=== PATIENT | female | born 1970 | race Native Hawaiian/Other Pacific Islander ===

== ENCOUNTER 2023-08-29 14:08 | Outpatient (AMB) | payer OTHER, SELFPAY ==
--- NOTE | 2023-08-29 13:52 | MHC.PC.OV ---
Vital Signs 08/29/23 14:30 Height 4 ft 11.84 in Weight 120 lb 8 oz BMI 23.7 BP 128/82 Blood Pressure Location Lt brachial Position Sitting Respiration 12 Pulse 83 Pulse Source Pulse Oximeter Temp 98.1 F Temp Source Oral Pulse Oximetry (%) 95 Oxygen Delivery Method Room Air Intake Visit Reasons: Physical Exam Intake Note: New patient visit Allergies No Known Allergies Allergy (Verified 08/29/23 14:23) Tobacco use date assessed: 08/29/23 Dental Screening Did you have a dental visit in the last 12 months?: No Did you have a dental problem in the last 6 months where you did not have access to dental care?: No Was dental information given to patient?: Patient declined HPI HPI Comments History of Present Illness Details This is a 53 year old female presenting to [facility] care. Citizen [place] video financial operations consultant used for appointment. Depression and anxiety-Kena Martinez BUSINESS OFFICE MANAGER is her psych med prescriber, and her therapist is Paige Felix. She is on oxcarbazepine, clonazepam, propranolol on quetiapine. Patient on SSI due to mental health. She has been hospitalized 3-4 times at [facility] for depression and ?nerves. ? Denies history of suicide attempts or self-harm or panic attacks. Most recent hospitalization was last year for 2 weeks. Positive alcohol screening-see below. Patient has transient nonspecific SI. Patient says she is currently homeless. Her daughter resides in [place]. Patient is staying with a friend where she feels safe in [place]. She has a coordinator providing services and helping her get to appointments. Patient concerned about her memory. During the past year she is forgetful. She forgets where she puts things, what she is doing and thinks people tell her. Her paternal uncle from Alzheimer's disease. Patient gets migraines rarely. She complains of chronic left lower back pain and sciatica on the left side. She has never had imaging. It bothers her most days. No loss of bowel or bladder control or numbness or tingling in the groin. She has not done PT or seen a specialist. Patient has moles on her right collarbone and left lower leg that she wants checked by Dermatology. The 1 on her leg has been gradually enlarging over the past 2 years. No history of skin cancer. ROS: Constitutional: No unexplained weight loss, fever, chills or night sweats. Eyes: No vision changes, blurry vision, double vision Respiratory: No shortness of breath Cardiovascular: No chest pain Neurologic: No headache, dizziness, syncope, unilateral weakness, ataxia. No seizures. Musculoskeletal: See HPI Phyiscal exam: Constitutional: Alert, in no distress. Head: Normocephalic. Eyes: Pupils are equal, round and reactive to light. Extraocular muscles intact. Neck: Supple, Full range of motion. No lymphadenopathy. No palpable thyroid masses. Respiratory: Clear to auscultation. Cardiovascular: S1 S2 regular. No murmurs. Neurologic:?Alert and oriented x 3, no focal deficits observed, CN 2-12 intact, [id number] normal, sensation equal and symmetric, strength UE and LE 5/5 bilaterally, reflexes equal and symmetric.? Normal gait.? Patient able to heel walk, toe walk and walk heel-to-toe across the floor.? No pronator drift.? Negative Romberg. Musculoskeletal: Left lumbar area and sciatic notch tender to palpation. Extremities: Warm and well perfused. No clubbing, cyanosis or edema. Skin: 2 mm light brown nevus on right collarbone with symmetric borders. 5 mm dark brown flat nevus on the back of the left lower leg. Psychiatric: Cooperative. Maintains good eye contact, tearful at times. Anxious appearing. [facility] Medical History (Updated 08/29/23 @ 16:42 by MILADIS Argueta) Multiple nevi Low back pain with left-sided sciatica Memory loss Endometriosis Anxiety Depression Surgical History (Updated 08/29/23 @ 16:35 by Lisa Lay CMA) S/P removal of left ovary History of left oophorectomy Family History (Updated 08/29/23 @ 16:34 by Lisa Lay CMA) Father Cancer Maternal Uncle Substance use Alzheimer dementia Social History (Updated 08/29/23 @ 14:27 by Lisa Lay CMA) Housing: Homeless Cigarette Packs Per Day: 0.25 Years Smoked: 36 e-Cigarette/Vaping Use: Never Used Second Hand Smoke Exposure: No Substance Use Type: Marijuana service: Yes Current occupational status: disabled Cognitive needs: No Hearing needs: No Vision needs: Yes (glasses) Questionnaire PHQ-9 Over the last 2 weeks, how often have you been bothered by any of the following problems? 1. Little interest or pleasure in doing things: more than half the days 2. Feeling down, depressed, or hopeless: nearly every day 3. Trouble falling or staying asleep, or sleeping too much: nearly every day 4. Feeling tired or having little energy: nearly every day 5. Poor appetite or overeating: several days 6. Feeling bad about yourself - or that you are a failure or have let yourself or your family down: nearly every day 7. Trouble concentrating on things, such as reading the newspaper or watching television: nearly every day 8. Moving or speaking so slowly that other people could have noticed. Or the opposite - being so fidgety or restless that you have been moving around a lot more than usual: not at all 9. Thoughts that you would be better off or of hurting yourself in some way: several days Total score: 19 Depression Screening Interpretation: Positive Depression Screening Follow-up: In treatment Depression Screening Done: Yes 70350 - PHQ-9 Billing: Yes Source: Developed by Drs. Osmin Chandra, Darlene Jorge, Jonathan Pacheco and colleagues, with an educational vonda from [employer]. Thrive Questionnaire Date Thrive assessed: 08/29/23 I am a: Patient What is your living situation today?: I have a steady place to live Within the past 12 months, did the food you bought not last and you didn't have the money to get more?: Never true Within the past 12 months, did you worry whether your food would run out before you got money to buy more?: Never true Do you have trouble paying for medicines?: No Do you have trouble getting transportation to medical appointments?: No Do you have trouble paying your heating and electricity bill?: No Do you have trouble taking care of your child, family member or friend?: No Do you have trouble with day-to-day activities such as bathing, preparing meals, shopping, managing finances, etc.?: No Are you currently unemployed and looking for a job?: No Are you interested in more education?: No Please select the resources that you would like help with: None Currently or been in a relationship where the following occur: No concerns reported THRIVE Score: 0 AUDIT C Alcohol Use Questionnaire (AUDIT-C) 1. How often do you have a drink containing alcohol?: 4 or more times a week 2. How many drinks containing alcohol do you have on a typical day when you are drinking?: 3 or 4 3. How often do you have six or more drinks on one occasion?: Daily or almost daily Total Score: 9 Score Reviewed/Action Taken: Yes VIJAYA-7 AMB Questionnaire VIJAYA-7 Date VIJAYA - 7 assessed: 08/29/23 Feeling nervous, anxious, or on edge: 3 = Nearly every day Not being able to stop or control worryin = Not at all Worrying too much about different things: 3 = Nearly every day Trouble relaxin = Not at all Being so restless that it is hard to sit still: 1 = Several days Becoming easily annoyed or irritable: 3 = Nearly every day Feeling afraid as if something awful might happen: 0 = Not at all Total VIJAYA-7 score (0-4 normal; 5-9 mild; 10-14 moderate; 15-21 severe): 10 Source: Developed by Drs. Osmin Chandra, Darlene Jorge, Jonathan Pacheco and colleagues, with an educational vonda from [employer]. VIJAYA-7 Assessment Billing VIJAYA-7 Assessment Tool: VIJAYA-7 Assessment 03190 Physical exam (Primary Care) Vital Signs: Last Vital Signs Temp 98.1 F 08/29/23 14:30 Pulse 83 08/29/23 14:30 Resp 12 08/29/23 14:30 BP 128/82 08/29/23 14:30 Pulse Ox 95 08/29/23 14:30 Oxygen Delivery Method Room Air 08/29/23 14:30 BMI result Body Mass Index 23.7 Tobacco/Smoking Status: Tobacco use Status Tobacco use date assessed 08/29/23 08/29/23 14:40 e-Cigarette/Vaping Use Never Used 08/29/23 14:40 PHQ-9: PHQ-9 Score PHQ-9: Total score 19 08/29/23 15:39 Depression Screening Interpretation: Positive Depression Screening Follow-up: In treatment Thrive Assessment: Date of Thrive Assessment Date Thrive assessed 08/29/23 08/29/23 15:39 Currently or been in a relationship where the following occur: No concerns reported Assessment and Plan Assessment & Plan (1) Screening for cardiovascular condition: Code(s): Z13.6 - Encounter for screening for cardiovascular disorders (2) Memory loss: Code(s): R41.3 - Other amnesia Plan: She has talked about this with her therapist and psychiatrist. Check labs for cognitive decline and MRI of the brain. To consider referral for neurology/neuropsych testing pending results. (3) Depression: Code(s): F32.A - Depression, unspecified Qualifiers: Active/Remission status: currently active Depression Type: major depressive disorder Major depression episode severity: severe Major depression recurrence: recurrent Psychotic features: without psychotic features Qualified Code(s): F33.2 - Major depressive disorder, recurrent severe without psychotic features Plan: Continue management per therapist and psychiatrist. Warning signs warranting ER evaluation reviewed. (4) Anxiety: Code(s): F41.9 - Anxiety disorder, unspecified Plan: See above notes on depression. (5) Low back pain with left-sided sciatica: Code(s): M54.42 - Lumbago with sciatica, left side Qualifiers: Back pain laterality: left Chronicity: chronic Qualified Code(s): M54.42 - Lumbago with sciatica, left side; G89.29 - Other chronic pain Plan: Start with x-ray evaluation. To consider referral for physical therapy and physiatry. (6) Multiple nevi: Code(s): D22.9 - Melanocytic nevi, unspecified Plan: Refer to [facility]. Plan Follow-up in a month to review results and for a physical exam. Orders: Orders Complete Blood Count no Diff Today F32.A - Depression, unspecified, F41.9 - Anxiety disorder, unspecified, N80.9 - Endometriosis, unspecified, Z13.6 - Encounter for screening for cardiovascular disorders Lipid Panel Today F32.A - Depression, unspecified, F41.9 - Anxiety disorder, unspecified, N80.9 - Endometriosis, unspecified, Z13.6 - Encounter for screening for cardiovascular disorders Comprehensive Met. Panel Today F32.A - Depression, unspecified, F41.9 - Anxiety disorder, unspecified, N80.9 - Endometriosis, unspecified, Z13.6 - Encounter for screening for cardiovascular disorders MR head/brain wo con Today R41.3 - Other amnesia TSH reflex Free T4 Today E66.9 - Obesity, unspecified, F32.A - Depression, unspecified, F41.9 - Anxiety disorder, unspecified, N80.9 - Endometriosis, unspecified, Z13.6 - Encounter for screening for cardiovascular disorders Vitamin B12 and Folate Today R41.3 - Other amnesia Syphilis Screen Today R41.3 - Other amnesia XR lumbar spine 2-3V Today M54.42 - Lumbago with sciatica, left side Referrals CERTIFIED COATINGS INSPECTOR Referral N80.9 - Endometriosis, unspecified, N95.9 - Unspecified menopausal and perimenopausal disorder Dermatology Referral L98.9 - Disorder of the skin and subcutaneous tissue, unspecified Coding Level of Care Code New Pt Level 4 (85872) Complex EM visit Add On G2211 Diagnoses Screening for cardiovascular condition Z13.6 Memory loss R41.3 Severe episode of recurrent major depressive disorder, without psychotic features F33.2 Active/Remission status: currently active Depression Type: major depressive disorder Major depression episode severity: severe Major depression recurrence: recurrent Psychotic features: without psychotic features Anxiety F41.9 Chronic left-sided low back pain with left-sided sciatica M54.42; G89.29 Back pain laterality: left Chronicity: chronic Multiple nevi D22.9 Additional Codes VIJAYA-7 Assessment Billing - VIJAYA-7 Assessment Tool: VJIAYA-7 Assessment [id number] ([id number])
[2023-08-29 14:30] VITALS: BP 128/82; PULSE 83; RESP 12; TEMP 36.7; O2SAT 95; BMI 23.7
== END 2023-08-29 15:15 | disposition home or self-care (01) ==
PROVIDERS: PCP Physician Assistant Medical; Visit Provider Physician Assistant Medical
DX: R41.3 Other amnesia (principal); Z13.6 Encounter for screening for cardiovascular disorders; F33.2 Major depressive disorder, recurrent severe without psychotic features; F41.9 Anxiety disorder, unspecified; M54.42 Lumbago with sciatica, left side; G89.29 Other chronic pain; D22.9 Melanocytic nevi, unspecified
CPT/HCPCS: 99204; G2211

== ENCOUNTER 2024-10-21 10:12 | Outpatient (AMB) | payer OTHER, SELFPAY ==
--- NOTE | 2024-10-21 10:36 | A.OFFPC_ITS ---
Vital Signs 10/21/24 10:46 Height 5 ft Weight 117 lb 2 oz BMI 22.9 BP 118/88 Blood Pressure Location Rt brachial Position Sitting Respiration 14 Pulse 63 Temp 97.2 F Temp Source Temporal Artery Scan Pulse Oximetry (%) 97 Oxygen Delivery Method Room Air Intake Visit Reasons: annual pe Intake Note: Kimberley presents in the office today for her annual physical. Fuel Cell Designer Required: Yes Fuel Cell Designer Name: [id number] [place] Allergies No Known Allergies Allergy (Verified 10/21/24 10:42) Medication List - Last Reconciled 10/21/24 by MILADIS Argueta blood pressure monitor As directed clonazepam 0.25 mg PO BID PRN oxcarbazepine 150 mg PO BID propranolol 10 mg PO BID quetiapine 300 mg PO BEDTIME Tobacco use date assessed: 10/21/24 Dental Screening Dental Screen Date: 10/21/24 Did you have a dental visit in the last 12 months?: No Did you have a dental problem in the last 6 months where you did not have access to dental care?: No Was dental information given to patient?: Patient has dentist HPI HPI Comments History of Present Illness Details This is a 54 year old female presenting for her physical exam. Czech video financial sales advisor used for appointment. Depression and anxiety-Kena Martinez NP is her psych med prescriber, and her therapist is Paige Felix. She has not seen her therapist recently. She is on oxcarbazepine, clonazepam, propranolol on quetiapine. Patient on SSI due to mental health. She has been hospitalized 3-4 times at [facility] for depression and ?nerves. ? Denies history of suicide attempts or self-harm or panic attacks. HIstory of homelessness. She lives in a house with her daughter's mother in law. Patient has transient nonspecific SI. Denies plan to harm herself. She has three grandchildren she loves more than anything. Vaccine recommendations reviewed. Tdap given today. Diastolic BP prehypertensive range. Patient prescribed BP cuff. Recommended low sodium diet and avoidance of caffeine. ROS: Constitutional: No unexplained weight loss, fever, chills, fatigue or night sweats. Eyes: No vision changes, blurry vision, double vision, eye pain, eye redness, eye discharge. ENT: No hearing loss, sneezing, congestion, runny nose or sore throat. Respiratory: No shortness of breath, cough or sputum production. Cardiovascular: No chest pain, chest pressure or chest discomfort. No palpitations or pedal edema. Gastrointestinal: No anorexia, nausea, vomiting or diarrhea. No abdominal pain or blood in stool. Genitourinary: No dysuria, hematuria, urinary frequency. Neurologic: No headache, dizziness, syncope, unilateral weakness, ataxia, numbness or tingling in the extremities. Musculoskeletal: No joint pain or swelling. Hematologic/Lymphatics: No bleeding or bruising. No painful lymph nodes. Skin: No rash or itching. Endocrine: No cold or heat intolerance. No polyuria or polydipsia. Psychiatric: see HPI Physical exam: Constitutional: Alert, in no distress. Head: Normocephalic. Eyes: Pupils are equal, round and reactive to light. Extraocular muscles intact. Ear, Nose and Throat: Canals clear. TMs normal. Normal nasal mucosa. No nasal discharge. No oral lesions. Neck: Supple, Full range of motion. No lymphadenopathy. No palpable thyroid masses. Respiratory: Clear to auscultation. Cardiovascular: S1 S2 regular. No murmurs. No carotid bruits. Gastrointestinal: Abdomen soft, non-tender, non-distended. Normal bowel sounds. No palpable masses. Genitourinary: No costovertebral angle tenderness. Neurologic: No focal neurological deficits. Symmetric patellar reflexes. Moves all extremities spontaneously. Sensation intact bilaterally. Skin: No rashes Musculoskeletal: No gross deformities. Normal range of motion. Extremities: Warm and well perfused. No clubbing, cyanosis or edema. Psychiatric: Normal mood and affect [facility] Medical History (Updated 10/21/24 @ 11:21 by MILADIS Argueta) Elevated blood pressure reading with diagnosis of hypertension Screen for colon cancer Screening for cardiovascular condition Routine physical examination Multiple nevi Low back pain with left-sided sciatica Memory loss Endometriosis Anxiety Depression Surgical History (Updated 08/29/23 @ 16:35 by Lisa Lay CMA) S/P removal of left ovary History of left oophorectomy Family History Father Cancer Maternal Uncle Substance use Alzheimer dementia Social History (Updated 10/21/24 @ 10:45 by Nunu Hardy MA) Housing: Homeless Alcohol intake: current Patient Tobacco Use Status: Current everyday Tobacco user Tobacco use type: Cigarette Cigarette Packs Per Day: 0.25 Years Smoked: 36 e-Cigarette/Vaping Use: Never Used Second Hand Smoke Exposure: No Substance Use Type: Marijuana service: Yes Current occupational status: disabled Cognitive needs: No Hearing needs: No Vision needs: Yes (glasses) Questionnaire PHQ-9 Over the last 2 weeks, how often have you been bothered by any of the following problems? 1. Little interest or pleasure in doing things: nearly every day 2. Feeling down, depressed, or hopeless: nearly every day 3. Trouble falling or staying asleep, or sleeping too much: nearly every day 4. Feeling tired or having little energy: nearly every day 5. Poor appetite or overeating: nearly every day 6. Feeling bad about yourself - or that you are a failure or have let yourself or your family down: nearly every day 7. Trouble concentrating on things, such as reading the newspaper or watching television: nearly every day 8. Moving or speaking so slowly that other people could have noticed. Or the o pposite - being so fidgety or restless that you have been moving around a lot more than usual: nearly every day 9. Thoughts that you would be better off or of hurting yourself in some way: nearly every day Total score: 27 Depression Screening Interpretation: Positive Depression Screening Done: Yes 24004 - PHQ-9 Billing: Yes Source: Developed by Drs. Osmin Chandra, Darlene Jorge, Jonathan Pacheco and colleagues, with an educational vonda from [employer]. Thrive Questionnaire Date Thrive assessed: 10/21/24 I am a: Patient What is your living situation today?: I do not have a steady places to live Within the past 12 months, did the food you bought not last and you didn't have the money to get more?: Often true Within the past 12 months, did you worry whether your food would run out before you got money to buy more?: Often true Do you have trouble paying for medicines?: No Do you have trouble getting transportation to medical appointments?: No Do you have trouble paying your heating and electricity bill?: I choose not to answer this question Do you have trouble taking care of your child, family member or friend?: No Do you have trouble with day-to-day activities such as bathing, preparing meals, shopping, managing finances, etc.?: No Are you currently unemployed and looking for a job?: No Are you interested in more education?: No Please select the resources that you would like help with: Housing/Retirement and Food Currently or been in a relationship where the following occur: No concerns reported THRIVE Score: 3 AUDIT C Alcohol Use Questionnaire (AUDIT-C) 1. How often do you have a drink containing alcohol?: 2-3 times a week 2. How many drinks containing alcohol do you have on a typical day when you are drinking?: 1 or 2 3. How often do you have six or more drinks on one occasion?: Less than monthly Total Score: 4 VIJAYA-7 AMB Questionnaire VIJAYA-7 Date VIJAYA - 7 assessed: 10/21/24 Feeling nervous, anxious, or on edge: 3 = Nearly every day Not being able to stop or control worryin = More than half the days Worrying too much about different things: 3 = Nearly every day Trouble relaxin = Nearly every day Being so restless that it is hard to sit still: 1 = Several days Becoming easily annoyed or irritable: 0 = Not at all Feeling afraid as if something awful might happen: 1 = Several days Total VIJAYA-7 score (0-4 normal; 5-9 mild; 10-14 moderate; 15-21 severe): 13 Source: Developed by Drs. Osmin Chandra, Darlene Jorge, Jonathan Pacheco and colleagues, with an educational vonda from [employer]. VIJAYA-7 Assessment Billing VIJAYA-7 Assessment Tool: VIJAYA-7 Assessment 94069 Physical exam (Primary Care) Vital Signs: Last Vital Signs Temp 97.2 F 10/21/24 10:46 Pulse 63 10/21/24 10:46 Resp 14 10/21/24 10:46 BP 118/88 10/21/24 10:46 Pulse Ox 97 10/21/24 10:46 Oxygen Delivery Method Room Air 10/21/24 10:46 BMI result Body Mass Index 22.9 Tobacco/Smoking Status: Tobacco use Status Tobacco use date assessed 10/21/24 10/21/24 10:50 Patient Tobacco Use Status Current everyday Tobacco 10/21/24 10:50 Tobacco use type Cigarette 10/21/24 10:50 e-Cigarette/Vaping Use Never Used 10/21/24 10:45 PHQ-9: PHQ-9 Score PHQ-9: Total score 27 10/21/24 11:39 Depression Screening Interpretation: Positive Thrive Assessment: Date of Thrive Assessment Date Thrive assessed 10/21/24 10/21/24 10:39 Currently or been in a relationship where the following occur: No concerns reported Immunizations Boostrix Tdap 2.5 Lf unit-8 mcg-5 Lf/0.5 mL intramuscular syringe Performing Provider: MILADIS Argueta [place] [facility] Administered by: Nunu Hardy MA on 10/21/24 11:39 Dose Route Admin Location Dispensed Lot Number Expiration Date [facility] Industrial Energy Engineer 0.5 mL IM Left Deltoid 0.5 mL [id number] 12/17/26 [id number] [employer] Total Dispensed Waste 0.5 mL 0 % VIS Given Date VIS Provided VIS Publication Date 10/21/24 Single Vaccine 20 Eligibility Eligibility Date Funding Source Not [facility] Eligible 10/21/24 Private Coding Level of Care Code Est Pt Prev Care 40-64y(81412) Diagnoses Routine physical examination Z00.00 Additional Codes VIJAYA-7 Assessment Billing - VIJAYA-7 Assessment Tool: VIJAYA-7 Assessment 64998 ([id number]) PHQ-9 - 97026 - PHQ-9 Billing: Yes ([id number]) Assessment & Plan Assessment & Plan (1) Routine physical examination: Code(s): Z00.00 - Encounter for general adult medical examination without abnormal findings Category: Medical Plan Patient is seen today for a routine physical. As part of this visit we reviewed the following issues, which are considered and essential part of preventative health in this age group: - Breast Cancer screening - Annual Joiner Apprentice exam - Screening for colon cancer - Blood pressure screening annually - see HPI - Cholesterol screening - Osteoporosis prevention including calcium/vitamin D intake, weight bearing exercise & smoking cessation - Nutritional and exercise counseling - Counseling of injury prevention including fire prevention, smoke alarms and seat belt usage - Screening for depression - Education about skin cancer - Recommendations about immunizations - Recommendation of an eye exam - Screening for substance abuse Schedule CPE in 1 year. Orders: Orders Comprehensive Met. Panel Today G89.29 - Other chronic pain, M54.42 - Lumbago with sciatica, left side, Z00.00 - Encounter for general adult medical examination without abnormal findings, Z13.6 - Encounter for screening for cardiovascular disorders MM screening mammo BI Today Z12.31 - Encounter for screening mammogram for malignant neoplasm of breast TDaP Immunization Today Z23 - Encounter for immunization Lipid Panel Today G89.29 - Other chronic pain, M54.42 - Lumbago with sciatica, left side, Z00.00 - Encounter for general adult medical examination without abnormal findings, Z13.6 - Encounter for screening for cardiovascular disorders Complete Blood Count no Diff Today G89.29 - Other chronic pain, M54.42 - Lumbago with sciatica, left side, Z00.00 - Encounter for general adult medical examination without abnormal findings, Z13.6 - Encounter for screening for cardiovascular disorders TSH reflex Free T4 Today G89.29 - Other chronic pain, M54.42 - Lumbago with sciatica, left side, Z00.00 - Encounter for general adult medical examination without abnormal findings, Z13.6 - Encounter for screening for cardiovascular disorders Vitamin D 25-OH (D2 and D3) Today G89.29 - Other chronic pain, M54.42 - Lumbago with sciatica, left side, Z00.00 - Encounter for general adult medical examination without abnormal findings, Z13.6 - Encounter for screening for cardiovascular disorders Referrals JEWELRY DIPPER Referral Z01.419 - Encounter for gynecological examination (general) (routine) without abnormal findings Gastroenterology Referral Z12.11 - Encounter for screening for malignant neoplasm of colon Medications: New blood pressure monitor As directed 1 ea 0RF I10 - Essential (primary) hypertension
[2024-10-21 10:46] VITALS: BP 118/88; PULSE 63; RESP 14; TEMP 36.2; O2SAT 97; BMI 22.9
--- OUTSIDE RECORDS SUMMARY | 2024-10-21 11:18 | XMS_ITS | Patient Health Record ---
Author Organization [facility] Address [address] [place], [place] [id number] Care Team Providers Care Manager Produce Name Role Phone NO, PCP Primary Care Provider [facility], Nursing Unavailable [phone] Allergies No Known Allergies Reason For Referral No Information Social History Tobacco Use: Social History Observation Description Date Details (start date - stop date) Current Smoker NA - NA Tobacco Use Assessment MU Question Answer Notes What is your current smoking status? current smo ker How often do you smoke? every day How many cigarettes a day do you smoke? 6-10 How soon after you wake up do you smoke your fir st cigarette? 6-30 minutes Are you interested in quitting? not ready to celena t Problems Problem Type SNOMED Code ICD Code Onset Dates Problem Status W/U Status Risk Notes Problem Nicotine dependence, cigarettes, uncomplicated (F17.210) Active confirmed Problem Sheltered homelessness ([id number] ) Sheltered homelessness (Z59.01) Active confirmed Plan Of Treatment No Information Insurance Providers Payer Name Payer Address Payer Phone Subscriber Number Group Number Insured Name Patient Relationship to Insured Coverage Start Date Coverage End Date [facility] [address] MILADIS BUNDY [phone] Kimberley Mace Self - patient is the insured 2 Medical (General) History Medical History History ICD Code Depression, anxiety 2011, hx suicide att empts ETOH use Cannabis use Tobacco use Mole L foot growing Homelessness ? menopausal Insomnia Surgical History Surgery Date(Month/Year) endometriosis, removed some female orga ns 2011 Hospitalization History Reason Date(Month/Year) [facility]-5th floor x 2.5 weeks- took pills and drank acetone -suicide attempt/reports many admissions here for psych issues 04/2021
--- OUTSIDE RECORDS SUMMARY | 2024-10-21 11:18 | XMS_ITS | Clinical Summary ---
Author Organization [facility] Address [address] [address] Care Team Providers Care Central Sterile Supply Technician Name Role Phone Cassia Glass PA-C Primary Care Provider [phone] Source Comments PLEASE NOTE, if this patient is a minor, it may be UNLAWFUL to discuss sensitive information that is contained in these records (such as FAMILY PLANNING, MENTAL HEALTH or SUBSTANCE ABUSE) with the minor patient's parent or other person without the patient's specific authorization.[facility] Allergies Active Allergy Reactions Criticality Noted Date Comments Fish Containing Products Swelling 09/15/2021 Medications prazosin (MINIPRESS) 2 mg capsule Take 2 mg by mouth 07/08/2021 Active QUEtiapine (SEROQUEL) 100 mg tablet 09/14/2021 Active hydrOXYzine HCL (ATARAX) 50 mg tablet 09/14/2021 Active venlafaxine (EFFEXOR-XR) 150 mg 24 hr capsule Take 150 mg by mouth 07/08/2021 Active propranoloL (INDERAL) 10 mg tablet Take 10 mg by mouth 07/08/2021 Active thiamine HCl, vitamin B1, 100 mg tablet Take 100 mg by mouth 07/08/2021 Active Social History Tobacco Use Types Packs/Day Years Used Date Smoking Tobacco: Every Day Cigarettes Smokeless Tobacco: Never Tobacco Cessation:Ready to Q uit: Not Asked; Counseling Given: Yes Alcohol Use Standard Drinks/Week Comments Yes 6 (1 standard drink = 0.6 oz pur e alcohol) Social Connections Answer Date Recorded Connectedness 0 11/06/2023 Financial Resource Strain Answer Date R ecorded Financial Resource Strain 0 2021 Stress Answer Date Recorded Stress 0 09/15/2021 Physical Activity Answer Date Recorded Physical Activity 0 09/15/2021 Food Insecurity Answer Date Recorded Food 0 11/23/2023 Transportation Needs Answer Date Record ed Transportation 0 09/15/2021 Housing Stability Answer Date Recorded Housing 0 09/15/2021 Safety and Environment Answer Date Andrés rded Safety 0 09/15/2021 Utilities Answer Date Recorded Utilities 0 09/15/2021 Employment Answer Date Recorded Employment 0 09/15/2021 Comments Unknown Sex and Gender Information Value Date Recorded Sex Assigned at Female 09/15/2021 12:11 PM PDT Legal Sex Female 1:47 PM PST Gender Identity Female 09/15/2021 12:11 PM PDT Sexual Orientation Straight 09/15/2021 12 :11 PM PDT Plan of Treatment Health Maintenance Due Date Last Done Comments Anxiety Screening 1972 Diabetes Screening 1972 HPV Screening 1972 Hepatitis C Screening 1972 Lipid Screening 1972 Pap + HPV 1972 Tobacco Screening 1972 HIV Screening 06/05/1987 Hypertension Screening (#1) 1990 Medicare Annual Wellness Visit 1990 Imm-DTaP/Tdap/Td (1 - Tdap) 06/05/1991 Imm-Hepatitis B (1 of 3 - 19 + 3-dose series) 06/05/1991 Imm-Pneumococcal 50+ (1 of 2 - PCV) 06/05/1991 Cervical Cancer Screening 1993 Pap Smear 1993 Breast Cancer Screening (Mammogram) 2012 CT Colonography 2017 Colonoscopy 2017 Colorectal Cancer Screening 2017 FIT/gFOBT 2017 Fecal DNA 2017 Flexible Sigmoidoscopy 2017 Imm-Zoster, Recombinant (1 of 2) 2022 Tobacco Cessation Counseling (#1) 09/15/2022 [id number] ( season) 2023 05/19/2021, 11/27/2020, 11/06/2020 Alcohol and Drug Screen 02/28/2024 Depression Annual Screen 02/28/2024 Imm-Influenza (#1) 2024 Cervical Ablation/Cold-Knife Conization Discontinued Cervical Cryotherapy Discontinued Colposcopy Discontinued Endometrial Biopsy Discontinued Excision/Leep Discontinued HPV Genotyping Discontinued Vaginal Pap Discontinued Vulvoscopy Dis[place] Care Teams Central Sterile Supply Technician Relationship Specialty Start Date End Date Cassia Glass PA-C [address] [place] [phone] PCP - General Internal Medicine 09/21/22
--- OUTSIDE RECORDS SUMMARY | 2024-10-21 11:18 | XMS_ITS | Patient Health Record ---
Author Organization [email or web address] Address [id number] [place] [address] Care Team Providers Care Client Engagement Manager Name Role Phone [facility] Primary Care Provid er Unavailable Estelita Murray Unavailable [phone] ALLERGIES No Known Allergies REASON FOR REFERRAL No Information MEDICATIONS Medication SIG (Take, Route, Frequency, Duration) Notes Start Date End Date Status Lexapro Not-Taking clonazePAM 1 MG 1 tablet Orally twic e a day as needed for anxiety for 30 days on taper Active Sertraline HCl 200 MG 1 tablet Orally On ce a day for 30 day(s) Active Melatonin 5 MG 1 tablet at bedtime as needed Orally Once a day Not-Taking SOCIAL HISTORY Tobacco Use: Social History Observation Description Date Details (start date - stop date) Current Smoker NA - NA Sex Assigned At : Social History Observation Description Sex Assigned At Female Tobacco Use/Smoking Question Answer Notes Are you a current smoker How often do you smoke cigarettes? every day Alcohol Screen Question Answer Notes Did you have a drink containing alcohol in the p ast year? No Points 0 Interpretation Negative Sexual History Question Answer Notes Had sex in the past 12 months (vaginal, oral, or anal)? No Have you ever had a Sexually transmitted disease ? No Drug and Alcohol Question Answer Notes Total Score: 0 Interpretation: No problems reported PRAPARE Question Answer Notes Date Completed/Updated: 02/18/2021 What is your current housing situation? I do not have housing (staying with others, in a hotel, in a long term, living outside on the street, on a beach, or in a park) Are you worried about losing your housing? No What is the highest level of school that you have finished? High school diploma or GED What is your current work situation? Oth erwise unemployed but not seeking work (ex. student, retired, disabled, unpaid primary medicare interviewer) In the past year, have you o r any family members you live with been unable to get any of the following when it was really needed? Check all that apply I do not have problems meeting my needs Has lack of transportation k ept you from medical appointments, meetings, work or from getting things needed for daily living? Yes, it has kept me from non-medical meetings, appointments, work, or getting things needed for daily living How often do you see or talk to people that you care about and feel close to? (For example: talking to friends on the phone, visiting friends or family, going to jainism or club meetings) Less than once a week How stressed are you? Stress is when someone feels tense, nervous, anxious, or can\t sleep at night because their mind is troubled Very much In the past year have you sp ent more than 2 nights in a row in a detention, fpc, care home center, or juvenile correctional facility? No Are you a refugee? No What country are you from? Country Other than the [place] (please write in notes) Please specify: [place] Do you feel physically and e motionally safe where you currently live? Unsure In the past year, have you b een afraid of your partner or ex-partner? No PRAPARE Score: 14 PROBLEMS Problem Type ICD Code Onset Dates Problem Status W/U Status Risk SNOMED Code Notes Problem Major depressive disorder, recurrent, moderate (F33.1) Active confirmed Moderate recurrent major depression (72066380) Problem Generalized anxiety disorder (F41.1) Active confirmed Generalized anxiety disorder (21208871) Problem Anxiety disorder, unspecified (F41.9) Active confirmed Anxiety disorder (626876009) Problem Insomnia, unspecified (G47.00) Active confirmed PLAN OF TREATMENT Pending Test Test Name Order Date COMPREHENSIVE METABOLIC PANEL 01/05/2021 HEPATITIS PANEL, ACUTE W/REFLEX TO CONFI RMATION 01/05/2021 LIPID PANEL WITH REFLEX TO DIRECT LDL VITAMIN D QUESTASSURED 25-OH VIT D, (D2, D3), LC/MS/MS 01/05/2021 TSH W/REFLEX TO FT4 01/05/2021 HEMOGLOBIN A1c 01/05/2021 CBC (INCLUDES DIFF/PLT) 01/05/2021 HIV 1/2 ANTIGEN/ANTIBODY, FOURTH GENERAT ION W/RFL 01/05/2021 Insurance Providers Payer Name Payer Address Payer Phone Subscriber Number Group Number Insured Name Patient Relationship to Insured Coverage Start Date Coverage End Date MEDICARE [employer] [address] [place] [address] [id number] Kimberley Mace Self - patient is the insured MEDICAL (GENERAL) HISTORY Medical History History ICD Code hx of Nerve damage & disabled Surgical History Surgery Date(Month/Year) hx surgical procedure for endometriosis hx surgical procedure for left ovary rem oval Hospitalization History Reason Date(Month/Year) seen at [facility] ER for eye swoll en for spider bite
== END 2024-10-21 11:34 | disposition home or self-care (01) ==
LOC: HO.HMCFM 10:12
PROVIDERS: PCP Physician Assistant Medical; Visit Provider Physician Assistant Medical
DX: Z23 Encounter for immunization (principal); Z00.00 Encounter for general adult medical examination without abnormal findings

== ENCOUNTER → 2024-10-21 10:12 | Outpatient (BNVA) | payer OTHER, SELFPAY | PROVIDERS: PCP Physician Assistant Medical; Visit Provider Physician Assistant Medical | DX: Z00.00 Encounter for general adult medical examination without abnormal findings (principal); Z23 Encounter for immunization; F41.8 Other specified anxiety disorders; Z79.899 Other long term (current) drug therapy; Z13.31 Encounter for screening for depression; Z13.39 Encounter for screening examination for other mental health and behavioral disorders | CPT/HCPCS: 90471; 90715; 96127; 99396 ==

== ENCOUNTER 2024-10-24 08:52 | Outpatient (REF) | payer OTHER, SELFPAY ==
--- OUTSIDE RECORDS SUMMARY | 2024-10-24 09:40 | XMS_ITS | Clinical Summary ---
Author Organization [facility] Address [address] [place] [address] Care Team Providers Care Awning Installer Name Role Phone Cassia Glass PA-C Primary Care Provider [phone] Source Comments PLEASE NOTE, if this patient [...] 2) 2022 Tobacco Cessation Counseling (#1) 09/15/2022 [id number] ( season) 2023 05/19/2021, 11/27/2020, 11/06/2020 Alcohol and Drug Screen 02/28/2024 Depression Annual Screen 02/28/2024 Imm-Influenza (#1) 2024 Cervical Ablation/Cold-Knife Conization Discontinued Cervical Cryotherapy Discontinued Colposcopy Discontinued Endometrial Biopsy Discontinued Excision/Leep Discontinued HPV Genotyping Discontinued Vaginal Pap Discontinued Vulvoscopy [place] Care Teams Awning Installer Relationship Specialty Start Date End Date Cassia Glass PA-C [address] [place] [phone] PCP - General Internal Medicine 09/21/22
--- OUTSIDE RECORDS SUMMARY | 2024-10-24 09:40 | XMS_ITS | Patient Health Record ---
Author Organization [facility] Address [address] et [place], [place] [id number] Care Team Providers Care Ortho Assistant Name Role Phone NO, PCP Primary Care Provider [phone] [facility], Nursing Unavailable [phone] Allergies No Known Allergies Reason For Referral [...] uncomplicated (F17.210) Active confirmed Problem Sheltered homelessness ([id number] ) Sheltered homelessness (Z59.01) Active confirmed Plan Of Treatment No Information Insurance Providers Payer Name Payer Address Payer Phone Subscriber Number Group Number Insured Name Patient Relationship to Insured Coverage Start Date Coverage End Date [facility] [address] [place] [id number] Kimberley Mace Self - patient is the insured 2 Medical (General) History Medical History History ICD Code Depression, anxiety 2011, hx suicide att empts ETOH use Cannabis use Tobacco use Mole L foot growing Homelessness ? menopausal Insomnia Surgical History Surgery Date(Month/Year) endometriosis, removed some female orga ns 2011 Hospitalization History Reason Date(Month/Year) [facility]-5th floor x 2.5 weeks- took pills and drank acetone -suicide attempt/reports many admissions here for psych issues 04/2021
--- OUTSIDE RECORDS SUMMARY | 2024-10-24 09:40 | XMS_ITS | Patient Health Record ---
Author Organization [facility] [place]. Address [address] [id number] [place] [address] Care Team Providers Care Psychological Stress Evaluator Name Role Phone [facility] Primary Care Provid er Unavailable Estelita Murray Unavailable [phone] ALLERGIES No Known Allergies REASON FOR REFERRAL [...] with others, in a hotel, in a fpc, living outside on the street, on a beach, or in a park) Are you worried about losing your housing? No What is the highest level of school that you have finished? High school diploma or GED What is your current work situation? Oth erwise unemployed but not seeking work (ex. student, retired, disabled, unpaid primary personal care attendant) In the past year, have you o [...] phone, visiting friends or family, going to cheondoism or club meetings) Less than once a week How stressed are you? Stress is when someone feels tense, nervous, anxious, or can\t sleep at night because their mind is troubled Very much In the past year have you sp ent more than 2 nights in a row in a custodial, detention, care home center, or juvenile correctional facility? 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) Problem Generalized anxiety disorder (F41.1) Active confirmed Generalized anxiety disorder (10959579) Problem Anxiety disorder, unspecified (F41.9) Active confirmed Anxiety disorder (548031253) Problem Insomnia, unspecified (G47.00) Active confirmed Insomnia (072677145) PLAN OF TREATMENT Pending Test Test Name [...] End Date MEDICARE [employer] [address] [place] [address] [id number] Kimberley Mace Self - patient is the insured MEDICAL (GENERAL) HISTORY Medical History History ICD Code hx of Nerve damage & disabled Surgical History Surgery Date(Month/Year) hx surgical procedure for endometriosis hx surgical procedure for left ovary rem oval Hospitalization History Reason Date(Month/Year) seen at [facility] ER for eye swoll en for spider bite
--- OUTSIDE RECORDS SUMMARY | 2024-10-24 09:40 | XMS_ITS | Clinical Summary ---
Author Organization [facility] Address [address] [place] [address] Care Team Providers Care Cable Tester Name Role Phone Unavailable Primary Care Provider Unavailabl e Social History Tobacco Use Types Packs/Day Years Used Date Smoking Tobacco: Never Assessed Comments Unknown Sex and Gender Information Value Date Recorded Sex Assigned at Not on file Legal Sex Female 4:39 PM EST Gender Identity Not on file Sexual Orientation Not on file Plan of Treatment Health Maintenance Due Date Last Done Comments Hepatitis C Virus Screening 1972 HIV Screening 1985 DTaP/Tdap/Td Vaccines (1 - Tdap) 06/05/1991 Hepatitis B Vaccines (1 of 3 - 19+ 3-dose series) 09/1991 Pneumococcal Vaccines 50+ (1 of 1 - PCV) 2022 Zoster (Shingles) Vaccine (1 of 2) 2022 COVID-19 Vaccine ( - 2023- season) 2023
[2024-10-24 11:43] LABS: Hematocrit 39.3 % (37.0-47.0); Hemoglobin 13.0 g/dl (12.0-16.0); Mean Corpuscular HGB Conc 33.1 g/dl (31.0-35.0); Mean Corpuscular Hemoglobin 33.3 pg (27.0-33.0); Mean Corpuscular Volume 100.8 fL (80.0-98.0); NRBC Abs Auto 0.000 X10*3/uL (0.0-0.012); NRBC Pct Auto 0.0 /100WBC (0.0-0.2); Platelet Count 189 X10*3/uL (160-400); Red Blood Count 3.90 X10*6/uL (4.20-5.50); White Blood Count 9.0 X10*3/uL (4.8-10.8)
[2024-10-24 12:01] LABS: Alanine Aminotransferase 16 U/L (0-31); Albumin Level 4.3 g/dL (3.5-5.0); Alkaline Phosphatase 78 U/L (39-117); Anion Gap 9 (12-20); Aspartate Amino Transferase 24 U/L (5-31); Blood Urea Nitrogen 15 mg/dL (9-16); Calcium 9.0 mg/dL (8.4-10.2); Carbon Dioxide 28 mmol/L (22-29); Chloride 108 mmol/L (96-108); Cholesterol 233 mg/dL (<200); Estimated Glomerular Filt Rate > 60; HDL Cholesterol 76 mg/dL (>40); Potassium 4.1 mmol/L (3.3-5.1); Sodium 141 mmol/L (135-145); Total Protein 6.8 g/dL (6.5-8.0); Triglycerides 127 mg/dL (<150)
[2024-10-28 17:42] LABS: Vitamin D 25-OH, D2 <4 ng/mL; Vitamin D 25-OH, D3 32 ng/mL; Vitamin D 25-OH, Total 32 ng/mL (30-100)
== END 2024-10-24 08:53 | disposition home or self-care (01) ==
LOC: HO.WFDLDS 08:52
PROVIDERS: Visit Provider Physician Assistant Medical
DX: Z00.00 Encounter for general adult medical examination without abnormal findings (principal); Z13.6 Encounter for screening for cardiovascular disorders; G89.29 Other chronic pain; M54.42 Lumbago with sciatica, left side; Z13.21 Encounter for screening for nutritional disorder; Z13.29 Encounter for screening for other suspected endocrine disorder
CPT/HCPCS: 36415; 80053; 80061; 82306; 84443; 85027